=== PATIENT | male | born 2000 | race Caucasian/White ===

== ENCOUNTER 2023-03-22 05:47 | Emergency (ER) | payer BC, OTHER, MEDICAID, SELFPAY ==
[2023-03-22 05:49] VITALS: BP 160/100; PULSE 95; RESP 16; TEMP 35.9; O2SAT 100; BMI 26.9
--- NOTE | 2023-03-22 05:54 | EX.ED.UPPERE ---
HPI History of Present Illness Chief Complaint: Upper Extremity Injury [facility] Medical History (Updated 03/22/23 @ 05:51 by Meri Sorto) Hypertension Home Medications NK 03/22/23 [History Last Taken Unknown] Allergy/AdvReac Type Severity Reaction Status Date / Time No Known Allergies Allergy Verified 03/22/23 05:50 Surgical History (Updated 03/22/23 @ 05:51 by Meri Sorto) History of appendectomy Social History Smoking Status: Current every day smoker tobacco type: cigarettes and e-cigarettes EXAM Physical Exam Const Vital Signs: 03/22/23 05:49 Temperature 96.7 F L Temperature Source Temporal Pulse Rate 95 Respiratory Rate 16 Blood Pressure 160/100 H Blood Pressure Mean 120 Pulse Ox 100 Oxygen Delivery Method Room Air [facility] Narrative Medical decision making narrative: HISTORY OF PRESENT ILLNESS: 22-year-old male here with bilateral hand pain after punching a brick wall. Notes he is right-hand dominant notes he injured his right hand. There is left hand but this is not as bad. REVIEW OF SYSTEMS: Pertinent positives: Hand pain Pertinent negatives: Numbness, weakness PHYSICAL EXAM: Nursing triage notes reviewed, Vital signs reviewed Constitutional: please see mdm Extremities: TTP over right fifth digit, there is swelling and edema over right fifth digit TTP over left fifth digit as well. Neuro: Intact 5/5 strength with ok sign (median), intact finger abduction (ulnar) intact wrist extension (radial n). Intact sensation in the radial, ulnar, and median nerve distributions. Skin: No scattered abrasions noted to bilateral hands MEDICAL DECISION MAKING: Chief Complaint: Hand pain MDM Narrative: Patient was hemodynamically stable, afebrile, nontoxic-appearing. Bilateral upper extremities neurovascular intact. I considered the following differential diagnosis: hand fracture, dislocation ALL IMAGES (IF OBTAINED) HAVE BEEN PERSONALLY REVIEWED AND INTERPRETED BY MYSELF. Radiographs of the left and right hand were personally viewed myself showed evidence of a right fifth metacarpal fracture. Some traction was applied to the patient's metacarpal to reduce angulation splint was placed. Follow-up was arranged. The patient and/or family, caregivers express understanding. The patient and/or family, caregivers agrees with the plan. Shared decision making: I will have a discussion with the patient and or visitors regarding risk/benefits of further testing or admission. They will be made aware of of the risk/benefits inherent in this decision they will be given the opportunity to voice understanding. Total critical care time today provided was at least 0 minutes. This excludes separately billable procedures. Critical care time (if documented) is secondary to the patient having high probability of clinically significant/life threatening deterioration in the patient's condition which required my urgent intervention. Impression: 1. Right fifth metacarpal fracture Dispo: Charge home Procedures Upper Extremity Splints Upper Extremity Splint: Orthoglass Splint Fabrication: Pre-fabricated Location: Right Discharge Plan Triage Chief Complaint: Upper Extremity Injury ED Provider: Carlton Nails Dx/Rx/DC Orders Instructions: ED Boxer Fracture Prescriptions: No Action NK Primary Care Provider: Care Physician,No Primary Referrals: Heriberto Cheung MD [Med Staff - Active Staff] - Activity Restrictions/Additional Instructions: Thank you for trusting us with your care today! Please take Tylenol (2 pills, 650 mg), ibuprofen (2 pills, 400 mg) every 6 hours as needed for pain and fever control. If further pain relief is required please use ice judiciously. Please return to the emergency department if your symptoms change or worsen. Please follow with Orthopedic surgery (Dr. Cheung) for further outpatient evaluation and management. Disposition Disposition: Home, Self Care
--- NOTE | 2023-03-22 05:55 | RAD_ITS ---
INDICATION: HAND PAIN AFTER PUNCHING A WALL EXAMINATION/TECHNIQUE: X-RAY - LEFT XR Hand Min 3 Views 6 VIEWS COMPARISON: Right hand on same day FINDINGS: SOFT TISSUES: No soft tissue swelling or gas. No radiopaque foreign body. BONES/JOINTS: No acute fracture. Normal alignment. Preservation of the joint space.. No sclerotic or destructive changes observed. RAD/Hand Min 3 Views IMPRESSION: Negative. Electronically Signed: Charles Velasquez MD at 6:55 EST ,
--- NOTE | 2023-03-22 06:15 | RAD_ITS ---
INDICATION: hand pain after punching a wall EXAMINATION/TECHNIQUE: X-RAY - RIGHT XR Hand Min 3 Views 3 VIEWS COMPARISON: No relevant prior comparison study available FINDINGS: SOFT TISSUES: Edema along the dorsal ulnar aspect of the hand No radiopaque foreign body. BONES/JOINTS: Fifth metacarpal distal diaphyseal fracture with mild volar angulation.. No dislocation.. Preservation of the joint space.. No sclerotic or destructive changes observed. RAD/Hand Min 3 Views IMPRESSION: Fifth metacarpal angulated fracture. Electronically Signed: Charles Velasquez MD at 6:53 EST ,
[2023-03-22 07:08] VITALS: BP 154/72; PULSE 87; RESP 18
== END 2023-03-22 07:09 | disposition home or self-care (01) ==
PROVIDERS: Emergency Provider Emergency Medicine; Visit Provider Emergency Medicine
DX: S62.306A Unspecified fracture of fifth metacarpal bone, right hand, initial encounter for closed fracture (principal); F17.210 Nicotine dependence, cigarettes, uncomplicated; W22.09XA Striking against other stationary object, initial encounter; Z90.49 Acquired absence of other specified parts of digestive tract; F17.290 Nicotine dependence, other tobacco product, uncomplicated
CPT/HCPCS: 29125; 73130; 99282

== ENCOUNTER 2023-07-30 08:13 | Emergency (ER) | payer BC, OTHER, MEDICAID, SELFPAY ==
[2023-07-30 08:13] VITALS: BP 146/94; PULSE 74; RESP 14; TEMP 36.1; O2SAT 100; BMI 23.7
--- NOTE | 2023-07-30 08:19 | NURSING ---
NO OLD EKGS
--- NOTE | 2023-07-30 08:29 | EKG12_ITS ---
Test Reason : CHEST PAIN Blood Pressure : / mmHG Vent. Rate : 072 BPM Atrial Rate : 072 BPM P-R Int : 144 ms QRS Dur : 098 ms QT Int : 364 ms P-R-T Axes : 056 054 031 degrees QTc Int : 398 ms Normal sinus rhythm with sinus arrhythmia Normal ECG Confirmed by John Harris ([id number]), acquisition editor KAYLEIGH ARELLANO ([id number]) on 07/31/2023 1:08:47 PM Referred By: Confirmed By:John Harris
--- NOTE | 2023-07-30 08:30 | ED.VIS.CHEST ---
HPI History of Present Illness Chief Complaint: Chest Pain Informant: patient Onset/Context/Timing Onset: Yesterday Activity at onset: gradual Timing: Waxes and wanes Quality: Positive for Sharp Location: Left Chest Current Severity: Mild Maximum Severity: Moderate Narrative Narrative: Patient presents secondary to left-sided chest pain. He reports sharp left-sided chest pain that he first noticed yesterday morning. Is been waxing and waning since that time. He does have shortness of breath with exertion. No recent change in activity or injury to the chest wall. No recent URI symptoms. Patient does report family history of cardiac disease. He states his father had his first OK at the age of 21. Patient reports only a history of severe hypertension that was diagnosed at the age of 17. He states he has been off of his blood pressure medication for the past 2 years and was just scheduled to see a new keycase assembler but has not yet done so. [facility] Medical History Hypertension Home Medications ?Medication ?Instructions ?Recorded ?Last Taken ?Type naproxen 500 mg tablet (Naprosyn) 500 mg PO BID PRN pain #20 tabs 07/30/23 Unknown Rx Allergy/AdvReac Type Severity Reaction Status Date / Time No Known Allergies Allergy Verified 07/30/23 08:36 Surgical History History of appendectomy Social History Smoking Status: Current every day smoker tobacco type: cigarettes and e-cigarettes ROS ROS ED Constitutional Constitutional ED: Denies chills or fever(s) Eyes Eyes: Denies discharge from eye(s) ENT ENT ED: Denies discharge from eye(s), rhinorrhea or sore throat Cardiovascular Cardiovascular: Reports chest pain; Denies palpitations Respiratory/Chest Respiratory/Chest: Reports dyspnea; Denies cough Gastrointestinal Gastrointestinal: Denies abdominal pain, nausea or vomiting Musculoskeletal Musculoskeletal: Denies back pain or extremity pain Integumentary Denies Abrasions or rash Neurologic Neurologic: Denies headache(s) or weakness Psychiatric Psychiatric: Denies anxiety or depression Allergic/Immunologic Allergic/Immunologic ED: Denies lip swelling or urticaria EXAM Physical Exam Const Vital Signs: 07/30/23 08:13 07/30/23 08:25 07/30/23 08:29 Temperature 97 F L Temperature Source Temporal Pulse Rate 74 Respiratory Rate 14 Respiratory Effort Normal Non-Labored Respiratory Pattern Normal Blood Pressure 146/94 H Blood Pressure Mean 111 Pulse Ox 100 Oxygen Delivery Method Room Air Room Air Positive well nourished and well developed General Appearance ED: well developed HEENT Reports moist mucous membranes Eyes EOMs intact bilaterally Chest Wall inspection of chest normal Chest Narrative: Mild left chest wall tenderness at the inferior aspect of the left sternal border. Resp normal respiratory effort and clear to auscultation bilaterally Cardio regular rate and regular rhythm GI soft to palpation and non-tender Extremity normal to inspection Neuro oriented x3 and no sensory deficits noted Motor Exam: strength 5/5 throughout Psych mental status grossly normal Skin no rashes or lesions noted MDM MDM MDM Narrative Medical decision making narrative: Patient placed on property assessment monitor. EKG obtained to evaluate for cardiac arrhythmia/ischemia. IV line established. Labwork obtained to evaluate for leukocytosis, anemia, and electrolyte derangement. History & Record Review Discussion w/independent historian: Patient and Significant other Lab Data Attestation: I reviewed the patient's lab results. Labs: Laboratory Results - last 24 hr 07/30/23 08:40 WBC 7.2 RBC 4.80 Hgb 14.7 Hct 43.4 MCV 90.4 MCH 30.6 MCHC 33.9 RDW Std Deviation 41.1 RDW Coeff of Estephania 12.4 Plt Count 255 MPV 9.4 Immature Gran % (Auto) 0.100 Neut % (Auto) 62.3 Lymph % (Auto) 25.5 [place]a % (Auto) 9.6 Eos % (Auto) 1.7 Baso % (Auto) 0.8 Absolute Neuts (auto) 4.5 Absolute Lymphs (auto) 1.83 Nucleated RBC % 0 D-Dimer Quant (PE/DVT) 0.31 Sodium 141 Potassium 3.9 Chloride 109 H Carbon Dioxide 26.0 Anion Gap 6 BUN 11 Creatinine 0.94 Estim Creat Clear Calc 143.32 Est GFR (MDRD) Af Amer 129 Est GFR (MDRD) Non-Af 107 BUN/Creatinine Ratio 11.8 Glucose 103 Calcium 8.9 Troponin I High Sens 5 Radiography Chest X-Ray - ED: 1 View, Read by ED Physician, Normal, Heart, Lungs and Mediastinum Diagnostic Testing: Clinical Impression(s) from Imaging Studies Chest X-Ray 07/30/23 08:45 IMPRESSION: No acute cardiopulmonary disease. Electronically Signed: Anmol Arnold MD at 9:00 EDT , EKG Initial EKG: Attestation: I personally reviewed and interpreted this EKG as follows: Interpretation: Sinus Rhythm (Sinus rhythm at 72 bpm. No acute ischemia.) Treatment and Re-Evaluation :: CBC reveals normal white count at 7.2 with a hemoglobin of 14.7. Normal differential. Chemistry studies are unremarkable. Troponin is normal at 5 and D-dimer is normal at 0.31. Portable chest x-ray per my interpretation reveals no acute findings. Radiology interpretation reviewed and agrees. EKG is sinus rhythm with no evidence of ischemia. On repeat evaluation patient resting comfortably. He has had no significant arrhythmias on property assessment monitor. His blood pressure at this time is 118/77. He is scheduled to see Dr. Alfaro from cardiology at [facility] in either mid August or September. I did recommend they call to update the patient was seen because of chest pain and see if he can have his appointment moved any sooner. At this time I will write him a prescription for naproxen to help with chest wall pain as I do believe this is a component of his current complaint. Discharge Plan Triage Chief Complaint: Chest Pain ED Provider: Sofia Hansen Dx/Rx/DC Orders Clinical Impression: Chest pain Instructions: ED Chest Pain, Uncertain Cause Prescriptions: New naproxen [Naprosyn] 500 mg tablet 500 mg PO BID PRN (Reason: pain) Qty: 20 0RF Primary Care Provider: Care Physician,No Primary Referrals: Care Physician,No Primary [Primary Care Provider] - Activity Restrictions/Additional Instructions: Please follow-up with Dr. Alfaro as scheduled. Print Language: British Disposition Disposition: Home, Self Care
[2023-07-30] MEDS: 0.9% Normal Saline (1000mL) 1,000 ML 150 ML IV (08:43)
[2023-07-30] MEDS: Aspirin 81 MG TAB.CHEW 324 MG PO (08:44)
--- NOTE | 2023-07-30 08:45 | RAD_ITS ---
EXAM: XR CHEST, 1 VIEW CLINICAL INDICATION: chest pain TECHNIQUE: Frontal view of the chest. COMPARISON: No relevant prior studies available. FINDINGS: LUNGS AND PLEURAL SPACES: Normal. No consolidation or edema. No pneumothorax. No effusion. HEART: Normal heart size. MEDIASTINUM: No mediastinal or hilar mass. BONES/JOINTS: No acute abnormality. RAD/Chest 1 View (Portable) IMPRESSION: No acute cardiopulmonary disease. Electronically Signed: Anmol Arnold MD at 9:00 EDT ,
[2023-07-30 08:49] LABS: Absolute Lymphocyte Count 1.83 X10^3/uL (0.83-4.51); Absolute Neutrophil Count 4.5 X10^3/uL (2.0-7.7); Basophil# 0.06 X10^3/uL; Basophil% 0.8 % (0-1); Eosinophil# 0.12 X10^3/uL; Eosinophils% 1.7 % (0-5); Hematocrit 43.4 % (40-54); Hemoglobin 14.7 g/dL (13.0-16.5); Lymphocyte # 1.83 X10^3/ul (0.83-4.51); Lymphocyte % 25.5 % (19-41); Mean Corp Hgb Conc 33.9 g/dL (32-36); Mean Corpuscular Hgb 30.6 pg (27.0-32.0); Mean Corpuscular Volume 90.4 fL (80-94); Mean Platelet Vol. 9.4 fl (6.2-12.0); Monocyte# 0.69 X10^3/uL; Monocyte% 9.6 % (0-10); NRBC Flagged by Analyzer 0 % (0-5); Neutrophil # 4.47 X10^3/uL (2.7-7.7); Neutrophil % 62.3 % (47-70); Platelet Count 255 K/mm3 (150-450); RBC Distribution Width CV 12.4 % (11.6-14.6); RBC Distribution Width SD 41.1 fl (35.1-43.9); White Blood Count 7.2 K/mm3 (4.4-11.0)
[2023-07-30 09:15] LABS: Anion Gap 6 (5-15); BUN 11 mg/dL (7-18); BUN/Creat Ratio 11.8 RATIO (10-20); Calcium,Total 8.9 mg/dL (8.5-10.1); Chloride 109 mmol/L (98-107); Creatinine, Serum 0.94 mg/dL (0.70-1.30); EST Glomerular Filtration Rate 107 mL/min (>60); Est Glom Filt Rate - Afr Amer 129 mL/min (>60); Estimated Creatinine Clearance 143.32 ml/min; Glucose 103 mg/dL (74-106); Potassium 3.9 mmol/L (3.5-5.1); Sodium Level 141 mmol/L (136-145); Troponin-I HS 5 pg/mL (3.0-78.0)
[2023-07-30 09:22] LABS: D-Dimer Quantitative (DVT/PE) 0.31 FEU/ug/m (0.27-0.49)
[2023-07-30 09:52] VITALS: BP 117/80; PULSE 74; RESP 18; TEMP 36.8; O2SAT 98
== END 2023-07-30 09:55 | disposition home or self-care (01) ==
PROVIDERS: Emergency Provider Emergency Medicine; Visit Provider Emergency Medicine
DX: R07.9 Chest pain, unspecified (principal); F17.210 Nicotine dependence, cigarettes, uncomplicated; I10 Essential (primary) hypertension; Z90.49 Acquired absence of other specified parts of digestive tract; F17.290 Nicotine dependence, other tobacco product, uncomplicated
CPT/HCPCS: 71045; 80048; 84484; 85025; 85379; 93005; 99284; J7030; A4216

== ENCOUNTER → 2023-11-26 | Outpatient (CLI) | payer OTHER, BC, MEDICAID, SELFPAY ==
--- NOTE | 2023-11-26 11:47 | RAD_ITS ---
STUDY: X-RAY - LEFT HAND REASON FOR EXAM: Male, 22 years old. Left hand trauma. Follow-up. TECHNIQUE: 3 view(s) of the hand. COMPARISON: November 22, 2023 FINDINGS: Stable comminuted fractures of the proximal aspects of the middle phalanges of the fourth digits with minimal displacement at the fracture sites, fourth digit greater than fifth digit. Soft tissue swelling. RAD/Hand Min 3 Views IMPRESSION: Stable fractures of the proximal phalange ease of the fourth and fifth fingers. Electronically Signed: Steven Steele MD at 15:40 EDT ,
== END | disposition home or self-care (01) ==
LOC: RAD 11:46
PROVIDERS: Referring Provider Surgery Plastic and Reconstructive Surgery; Visit Provider Surgery Plastic and Reconstructive Surgery
DX: S62.607A Fracture of unspecified phalanx of left little finger, initial encounter for closed fracture (principal); S62.605A Fracture of unspecified phalanx of left ring finger, initial encounter for closed fracture; X58.XXXA Exposure to other specified factors, initial encounter
CPT/HCPCS: 73130

== ENCOUNTER 2023-11-27 12:12 | Day surgery (SDC) | payer BC, OTHER, MEDICAID, SELFPAY ==
[2023-11-27] VITALS (9 sets, daily range): BP systolic 146–159; BP diastolic 84–98; PULSE 76–98; RESP 16–18; TEMP 36.1–36.3; O2SAT 98–100; BMI 24.5
--- NOTE | 2023-11-27 12:30 | HP.PCM.SX_ITS ---
HPI - General HPI Narrative ALLA HANLEY, is a 22 M who presents left ring and small finger fractures. Current Encounter (DATE OF SURGERY H&P UPDATE): I saw and examined the patient this morning in pre-operative holding. We discussed risks and benefits of today's surgery and they would like to proceed. NO CHANGE in health history since last seen and evaluated. Ready to proceed with surgery. [facility] Medical History (Updated 11/26/23 @ 14:53 by Lynne Small) Anxiety Alcohol use Migraine headache Gastric reflux Smoker Fracture of phalanx of left ring finger Fracture of phalanx of left little finger Left hand pain Hypertension Home Medications ?Medication ?Instructions ?Recorded ?Last Taken ?Type hydrocodone-acetaminophen 5-325mg 1 tab PO 4X/DAY PRN pain 11/22/23 Unknown History 5mg-325mg cephalexin 500 mg capsule 500 mg PO TID 7 days #21 caps 11/27/23 Unknown Rx oxycodone 5 mg tablet 5 mg PO Q12H PRN pain 5 days #10 11/27/23 Unknown Rx tabs Allergy/AdvReac Type Severity Reaction Status Date / Time No Known Allergies Allergy Verified 11/26/23 14:47 Family History Mother Anxiety Arthritis Grandmother Arthritis Breast cancer High cholesterol Cancer skin cancer Thyroid disorder Grandfather Diabetes Father Hypertension Cancer lung cancer-father Surgical History (Updated 11/26/23 @ 14:53 by Lynne Small) History of appendectomy (~2019) Social History household members: significant other Smoking Status: Current every day smoker tobacco type: cigarettes and e- cigarettes alcohol intake: current details: Claudio additional social history: pt vapes, denies marijuana use, denies edibles pt denies any family history of bleeding or blood clotting disorder denies aspirin and ibuprofen use Physical Exam Narrative Splint in place on the left upper extremity Assessment & Plan Assessment/Plan (1) Fracture of phalanx of left ring finger: PLAN: I talked to the patient extensively about his ring finger fracture and options for management (including attempted reduction and splinting). After discussion, I recommended surgery and he agreed. He understands that we may or may not perform surgery with hardware on the small finger fracture (depending on what it looks like in the operating room with x-rays and fluoroscopy -I will examine stability and assess). He would like to proceed with surgery for the ring and small finger fractures. I talked to him about the potential for K wire placement versus the placement of screws (we talked about close versus open reduction). He understands that the screws will be placed if possible for better stability and earlier range of motion, but I also talked him about how the screws are not MRI compatible and if he needed an MRI at some point they may need to be removed. He understood and agreed to proceed with whichever treatment seemed the best in the operating room based on how the fractures are reduced and what is possible based on the size of the bone. I talked the patient extensively about the risks of surgery, including bleeding, infection (especially the risk of hardware infection and need for repeat mason geries), damage to surrounding structures, nonunion of the fractures or malunion with need for repeat surgeries, need for hand therapy and stiffness, surgical site dehiscence and wound formation, need for wound care, need for repeat operations, failure to obtain the desired result, DVT/PE, and the risks of anesthesia including . All of their questions were answered, and they agreed to proceed with surgery. I also talked him about smoking cessation, and he agreed to try to quit INTERVAL H&P PLAN, DATE OF SURGERY: We will proceed with surgery today. (2) Fracture of phalanx of left little finger: (3) Left hand pain:
--- NOTE | 2023-11-27 12:39 | PCM.PRE.AN2 ---
ASA Classification* ASA Classification ASA Classification: 2 Assessment & Plan Anesthesia* Anesthesia Assessment Anesthesia Assessment: Discussed sedation and/or anesthesia options, risks, benefits, and alternatives with patient/parents/legal guardian/POA. Questions invited. The patient/parents/legal guardian/POA seems to understand and agrees to proceed with anesthesia plan. Reviewed the physical assessment, medical history, allergy history and patient home medications list prior to surgery/procedure/anesthetic and documented any changes. Performed airway and anesthesia risk assessments. Anesthesia Type Anesthesia Type: General Anesthesia Focused Assessment* Airway Assessment Mouth opens: >3 cm Mallampati Score: II Focused Labs Anesthesia Preop lab: CBC WBC 7.2 K/mm3 (4.4-11.0) 07/30/23 08:40 RBC 4.80 M/mm3 (4.6-6.2) 07/30/23 08:40 Hgb 14.7 g/dL (13.0-16.5) 07/30/23 08:40 Hct 43.4 % (40-54) 07/30/23 08:40 Plt Count 255 K/mm3 (150-450) 07/30/23 08:40 CHEMISTRY Potassium 3.9 mmol/L (3.5-5.1) 07/30/23 08:40 Sodium 141 mmol/L (136-145) 07/30/23 08:40 BUN 11 mg/dL (7-18) 07/30/23 08:40 Creatinine 0.94 mg/dL (0.70-1.30) 07/30/23 08:40 Glucose 103 mg/dL (74-106) 07/30/23 08:40 COAG Pre-Assessment Diagnosis/Proposed Procedure Planned Operative Procedure(s): Closed vs open fixation left ring and small finger Anesthesia History Anesthesia History - property accountant: Anesthesia History - property accountant Hx Hospitalization No 11/26/23 14:48 Any Problems With Anesthesia No 11/26/23 14:48 Cholinesterase deficiency No 11/26/23 14:48 You/Your Family Experience No 11/26/23 14:48 fever (hyperthermia) with Relationship Recent Exposure to Contagious Disease Does patient have nerve No 11/26/23 14:48 stimulator Patient instructed to have device shut off --Does patient have Pacemaker or ICD? When Was Last Pacemaker Check QUESTION #4 FULL TEXT: You/Your Family Experience fever (hyperthermia) with Anesthesia Last Oral Intake Last Oral intake: Last Oral Intake NPO since Meds taken in AM with sips of water? Meds patient instructed to take am of surgery PONV PONV - property accountant: PONV - property accountant Female No 11/26/23 14:48 HX of Motion Sickness No 11/26/23 14:48 HX of N/V After Surgery No 11/26/23 14:48 Non-Smoker No 11/26/23 14:48 Duration of Surgery greater Yes 11/26/23 14:48 than 60 minutes Number of Risk Factors 1 11/26/23 14:48 PONV Score Low Risk 11/26/23 14:48 Height & Weight Height & Weight: Anesthesia: Height & Weight Height 6 ft 3 in 11/26/23 11:19 Respiratory Assessment Respiratory Assessment - property accountant: Respiratory Tract Infection Hx - property accountant Hx Respiratory Tract Infection No 11/26/23 14:48 STOP Sleep Apnea STOP Sleep Apnea - property accountant: STOP Sleep Apnea - property accountant Hx Hypertension Yes: PT STATES HTN AND 11/26/23 14:48 SUPPOSED TO TAKE MED BUT DOESNT Hx Sleep Apnea No 11/26/23 14:48 CPAP BIPAP Do you snore loudly (louder No 11/26/23 14:48 than talking or can be heard Do you often feel tired/ No 11/26/23 14:48 fatigued/ sleepy during daytime? Has anyone observed you stop No 11/26/23 14:48 breathing during sleep? STOP Results Negative 11/26/23 14:48 QUESTION #5 FULL TEXT : Do you snore loudly (louder than talking or can be heard through closed doors)? Tobacco Use History Tobacco Use History - property accountant: Tobacco Use History - property accountant Tobacco Use Smoking Status Current every day smoker 11/26/23 14:48 Hx Tobacco Use Yes 11/26/23 14:48 Years Smoking Packs Smoked per Day Smoking Cessation Date was within the last 15 years Hx Smoking Cessation Date Hx Smoking Cessation Counseling Hematologic Medial History Hematologic Hx - property accountant: Hematologic Medical Hx - magazine grinder loader Hx of Blood Transfusion No 11/26/23 14:48 Hx of Transfusion in last 3 No 11/26/23 14:48 Months Date of Last Transfusion (if within last 3 months) Ever experience any problems No 11/26/23 14:48 with transfusion(s)? Specify any problems Hx of Preganancy in last 3 N/A 11/26/23 14:48 Months Nurse Filling Out Transfusion NBUCHER 11/26/23 14:48 & Questions: Date: 11/26/23 11/26/23 14:48 Time: 14:49 11/26/23 14:48 Patient unable to answer at this time (ie. confused, unrespo /Reproduction History /Reproductive History - property accountant: /Reproductive Hx- property accountant Hx Now No 11/26/23 14:48 Gestational Age (in weeks): EDC: Hx Hx Para Hx Section SAB No 11/26/23 14:48 Active Medications Active Medications: Current Medications Generic Name Dose Route Start Last Admin Trade Name Freq PRN Reason Stop Dose Admin Lactated Ringer's 1,000 mls @ 15 mls/hr 11/27/23 12:30 IV .Q48H PINKY PFSH Medical History Anxiety Alcohol use Migraine headache Gastric reflux Smoker Fracture of phalanx of left ring finger Fracture of phalanx of left little finger Left hand pain Hypertension Home Medications ?Medication ?Instructions ?Recorded ?Last Taken ?Type hydrocodone-acetaminophen 5-325mg 1 tab PO 4X/DAY PRN pain 11/22/23 11/24/23 History 5mg-325mg cephalexin 500 mg capsule 500 mg PO TID 7 days #21 caps 11/27/23 Unknown Rx oxycodone 5 mg tablet 5 mg PO Q12H PRN pain 5 days #10 11/27/23 Unknown Rx tabs Allergy/AdvReac Type Severity Reaction Status Date / Time No Known Allergies Allergy Verified 11/27/23 12:34 Family History Mother Anxiety Arthritis Grandmother Arthritis Breast cancer High cholesterol Cancer skin cancer Thyroid disorder Grandfather Diabetes Father Hypertension Cancer lung cancer-father Surgical History History of appendectomy (~2018) Social History household members: significant other Smoking Status: Current every day smoker tobacco type: cigarettes and e-cigarettes alcohol intake: current details: Rarley additional social history: pt vapes, denies marijuana use, denies edibles pt denies any family history of bleeding or blood clotting disorder denies aspirin and ibuprofen use Review of Systems (Anesthesia) ROS Narrative System reviewed and no additional complaints, except as documented.
[2023-11-27] MEDS: Lactated Ringers 1,000 ML 15 ML IV (12:54)
--- NOTE | 2023-11-27 12:54 | SUR.PREOP ---
DR. JEFFERSON AND DR. ALMANZAR IS AWARE OF PATIENT'S HISTORY OF HTN AND HIS BILATERAL GREAT INGROWN TOE INFECTIONS. THEY WILL PROCEED WITH SURGERY.
--- NOTE | 2023-11-27 13:20 | RAD_ITS ---
STUDY: X-RAY - LEFT HAND, ATTENTION FOURTH FINGER REASON FOR EXAM: Male, 22 years old. Intraoperative digital documentation views. TECHNIQUE: 23 saved intraoperative digital documentation view(s) of the finger. COMPARISON: Left hand x-rays dated November 26, 2023 FINDINGS: 411 images acquired. 23 images saved. Total exposure time 7 minutes 20 seconds. Longest single exposure 12 seconds. Total DAP 38.9092 cGy/cm2. Total air kerma 2.3160 mGy. RAD/Finger(s) Min 2 Views IMPRESSION: Intraoperative digital documentation views. Electronically Signed: Steven Steele MD at 15:45 EDT ,
[2023-11-27] MEDS: Cefazolin 2 GM in 0.9% Normal Saline (100mL Bag) 100 ML IV (14:24)
[2023-11-27] MEDS: Bupivacaine 0.25% 30 ML Vial (15:08)
--- NOTE | 2023-11-27 15:15 | PCM.POST.ANE ---
Anesthesia: Postop Eval I Current Vital Signs Temperature: 97.2 F Pulse Rate: 98 Blood Pressure: 159/88 Respiratory Rate: 18 Pulse Ox: 100 Oxygen Delivery Method: Room Air Assessment Airway patent: Yes Spontaneous unlabored respirations: Yes Mental status: Awake and Calm nausea: No Vomiting: No Anesthesia Complication: No Fluid Hydration Crystalloid volume administer (ml): 500 Total IV fluid infused: 500 Progress Note Anesthesia document: Postop Eval 1 completed: Yes
--- NOTE | 2023-11-27 16:01 | POSTOPAN2_ITS ---
Anesthesia Postop Eval I Sum Postop Eval Completion status Anesthesia document: Postop Eval 1 completed: Yes Anesthesia Postop Eval I Summary Anesthesia Postop Eval I Summary: Anesthesia Postop Eval I: Assessment Summary Airway patent Yes 11/27/23 15:16 [email or web address] Spontaneous unlabored Yes 11/27/23 15:16 [email or web address] respirations Mental status Awake,Calm 11/27/23 15:16 [email or web address] nausea No 11/27/23 15:16 HIGH [email or web address] Vomiting No 11/27/23 15:16 [email or web address] Anesthesia Postop Eval I: Fluid Summary Crystalloid volume administer 500 11/27/23 15:16 [email or web address] (ml) Colloids volume administered ( ml) Blood Product volume administered (ml) Total IV fluid infused 500 11/27/23 15:16 [email or web address] [email or web address] Anesthesia Postop Eval I: Summary Notes Anesthesia Complication No 11/27/23 15:16 [email or web address] [email or web address] Anesthesia Complication Comment: Post-operative progress note Anesthesia: Postop Eval II Evaluation Mental status: Awake Pain Level: 0 nausea: No Vomiting: No
--- NOTE | 2023-11-27 16:01 | PCM.POSTANE2 ---
Anesthesia Postop Eval I Sum Postop Eval Completion status Anesthesia document: Postop Eval 1 completed: Yes Anesthesia Postop Eval I Summary Anesthesia Postop Eval I Summary: Anesthesia Postop Eval I: Assessment Summary Airway patent Yes 11/27/23 15:16 [email or web address] Spontaneous unlabored Yes 11/27/23 15:16 [email or web address] [email or web address] respirations Mental status Awake,Calm 11/27/23 15:16 [email or web address] [email or web address] nausea No 11/27/23 15:16 [email or web address] [email or web address] Vomiting No 11/27/23 15:16 [email or web address] Anesthesia Postop Eval I: Fluid Summary Crystalloid volume administer 500 11/27/23 15:16 [email or web address] (ml) Colloids volume administered ( ml) Blood Product volume administered (ml) Total IV fluid infused 500 11/27/23 15:16 [email or web address] Anesthesia Postop Eval I: Summary Notes Anesthesia Complication No 11/27/23 15:16 [email or web address] Anesthesia Complication Comment: Post-operative progress note Anesthesia: Postop Eval II Evaluation Mental status: Awake Pain Level: 0 nausea: No Vomiting: No
[2023-11-27] MEDS: oxyCODONE 5 MG Tablet PO (16:17)
[2023-11-27] MEDS: Acetaminophen 500 MG Tablet 1000 MG PO (16:17)
--- NOTE | 2023-11-27 17:11 | OP.PCM_ITS ---
Operative Report Date of Procedure: 11/27/23 Surgery/Procedure Date: [ ] Incision/Procedure Start Time: [ ] Incision Close/Procedure End Time: [ ] PATIENT: [ ] SURGEON: Randy Gallardo MD PRE-OPERATIVE DIAGNOSIS: [ ] POST-OPERATIVE DIAGNOSIS: [ ] PROCEDURE PERFORMED: 1) Open reduction internal fixation of the left ring finger middle phalanx fracture, CPT code: 01418 2) Closed treatment without manipulation of the left small finger middle phalanx fracture, CPT code: 96895 OPERATIVE FINDINGS: [ ] INDICATIONS: [ ] OPERATIVE DETAILS: [ ] EBL: [ ] Anesthesia: [ ] ASA: [ ] IVF: [ ] UOP: [ ] Transfusions: [ ] POST-OPERATIVE PLAN: [ ]
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
== END 2023-11-27 18:04 | disposition home or self-care (01) ==
LOC: SDC 12:20 → AC 12:22
PROVIDERS: Referring Provider Surgery Plastic and Reconstructive Surgery; Visit Provider Surgery Plastic and Reconstructive Surgery
PROC: (CPT 26735; principal; 2023-11-27 14:05)
DX: S62.655A Nondisplaced fracture of middle phalanx of left ring finger, initial encounter for closed fracture (principal); S62.627A Displaced fracture of middle phalanx of left little finger, initial encounter for closed fracture; W22.8XXA Striking against or struck by other objects, initial encounter; I10 Essential (primary) hypertension; K21.9 Gastro-esophageal reflux disease without esophagitis; F41.9 Anxiety disorder, unspecified; F17.210 Nicotine dependence, cigarettes, uncomplicated; F17.290 Nicotine dependence, other tobacco product, uncomplicated; Z79.891 Long term (current) use of opiate analgesic
CPT/HCPCS: 26735; 26720; 01830; 73140; 76000; C1713; J7120; J2405

== ENCOUNTER → 2023-12-05 | Outpatient (CLI) | payer BC, OTHER, MEDICAID, SELFPAY ==
--- NOTE | 2023-12-05 14:30 | RAD_ITS ---
INDICATION: Left hand ORIF EXAMINATION/TECHNIQUE: X-RAY - LEFT XR Hand Min 3 Views 3 VIEWS COMPARISON: November 22, 2023 FINDINGS: SOFT TISSUES: Mild soft tissue swelling of the fourth finger. No radiopaque foreign body. BONES/JOINTS: Status post ORIF for a fracture involving the middle phalanx of the fourth finger. Stable fracture of the middle phalanx of fifth finger. . Preservation of the joint space.. No sclerotic or destructive changes observed. RAD/Hand Min 3 Views IMPRESSION: Status post ORIF for a fracture involving the middle phalanx of the fourth finger. Stable fracture of the middle phalanx of fifth finger. Electronically Signed: Juan Calvin DO at 18:44 EDT Reading Location ID and State: [facility] / [place] Tel [phone], Service support ,
== END | disposition home or self-care (01) ==
PROVIDERS: Referring Provider Surgery Plastic and Reconstructive Surgery; Visit Provider Surgery Plastic and Reconstructive Surgery
DX: S62.605A Fracture of unspecified phalanx of left ring finger, initial encounter for closed fracture (principal); S62.607A Fracture of unspecified phalanx of left little finger, initial encounter for closed fracture; M79.642 Pain in left hand; X58.XXXA Exposure to other specified factors, initial encounter
CPT/HCPCS: 73130

== ENCOUNTER 2023-12-21 02:12 | Emergency (ER) | payer BC, OTHER, MEDICAID, SELFPAY ==
[2023-12-21 02:12] VITALS: BP 140/83; PULSE 97; RESP 18; TEMP 36.1; O2SAT 100; BMI 25.7
[2023-12-21 02:49] VITALS: BP 133/78; PULSE 74; RESP 16; TEMP 36.6; O2SAT 99
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
== END 2023-12-21 02:53 | disposition home or self-care (01) ==
PROVIDERS: Emergency Provider Emergency Medicine; Visit Provider Emergency Medicine
DX: S62.605D Fracture of unspecified phalanx of left ring finger, subsequent encounter for fracture with routine healing (principal); S62.607D Fracture of unspecified phalanx of left little finger, subsequent encounter for fracture with routine healing; X58.XXXD Exposure to other specified factors, subsequent encounter; I10 Essential (primary) hypertension; F17.210 Nicotine dependence, cigarettes, uncomplicated; F17.290 Nicotine dependence, other tobacco product, uncomplicated
CPT/HCPCS: 29125; 99282

== ENCOUNTER 2023-12-26 15:30 | Outpatient (RCR) | payer BC, OTHER, MEDICAID, SELFPAY ==
--- NOTE | 2023-12-24 14:13 | HP.OTEVAL_ITS ---
Patient's Visit Information Visit Information Visit Information: ALLA HANLEY is a 23 year old M, referred to Occupational Therapy by Dr. Randy Gallardo MD, with a diagnosis of fx left RF/LF phalanx. Date of Evaluation: 12/24/23 Occupational Therapist: Deonna Lea, OTR/Danilo, CHT Subjective Subjective: This 23 year old male was seen for OT eval with dx of a left RF and LF phalanx fx. DOI was on 11/22/2023. Pt states he was using a post hole pounder and hit his hand. pt states he went to ER and then Dr. Gallardo performed sx ORIF to stabilize his fx with intramedullary cannulated headless screw on 11/27/2023. Pt states he struggled with keeping his cast on due to the feeling of itchy cotton or it getting wet. Pt arrived 3 weeks and 6 days from DOS. Today Dr. Gallardo would like pt in removable orthosis to allow for protection and support w mariusz fx is still healing. pt states he works at [employer]. 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 Strength Strength Comments: will test later date Quick DASH-Disab of Arm,Shoulder& Hand Quick DASH Score: 23.3325 Goals Goal:ROM equal to unaffected hand: Yes Goal:Strike Operations Officer/Pinch strength at least 75% of unaffected hand: Yes Comment: will not initiate until week [address] Gallardo indicates Goal:No pain with affected hand use: Yes Goal:Full use of affected hand in daily activities including work: Yes Other Goal: orthosis use: pt will demo IND doffing/donning of orthosis by end of 1st session. pt will demo understanding of orthosis use and precautions by end of 1st session. pt to return to clinic if orthosis need adj. to increase comfort and compliance with orthosis by end of 1st session. Rehabilitation General Assessment: pt arrives 3 weeks and 6 days s/p from fx stabilization with ORIF use of intramedullary cannulated headless screw to left RF P2. pt demo with limited ROM and newly healing structures that require further support and protection while fx is healing. PT demo need for skilled OT services 1-2 for 4 - 6 weeks to return pt to his PLOF. Today therapist needed for custom orthosis steven. also ed. pt on use and healing time for fx. pt demo understanding and agree to POC. Rehabilitation Potential: Good Anticipated Interventions Anticipated Interventions: A/AAROM/PROM, Strengthening, Triggerpoint Release, Modalities, Orthoses, Joint Protection/Energy Conservation, Ergonomic Education, Education re Diagnosis and Home Program Visit Plan Frequency: 1-2x /Week Duration: 4-6 Weeks General Plan: will steven. custom orthosis for use to allow fx to heal ed. on dx and healing ed.pt on light ROM ed. pt no lift, push or pull until cleared by Dr. Gallardo TEXT: Thank you for the opportunity to evaluate your patient. For Medicare and Medicare HMO plans, please review the plan of care and approve it. It will need to be FAXED BACK to us at [phone] for Medicare purposes. Please let me know if there are questions or concerns regarding this plan of care. Physician Signature: Date:
--- NOTE | 2024-05-19 08:49 | HP.OT.NRP ---
Patient Information Patient Information: ALLA HANLEY was seen in my office for initial evaluation on 12/24/23. The following Plan of Care was established for this patient: POC Established Initial Frequency: 1-2x /Week Initial Duration: 4-6 Weeks Plan: Continue POC: Anticipated Interventions Anticipated Interventions: A/AAROM/PROM, Strengthening, Triggerpoint Release, Modalities, Orthoses, Joint Protection/Energy Conservation, Ergonomic Education, Education re Diagnosis and Home Program Last Seen Last Seen: This patient was last seen in our office 12/26/23. Pertinent comments regarding their Occupational therapy will appear below: pt has no showed 3 apts in a row. At this time pt d/c. At this point I will be discontinuing this patient from occupational therapy. I would be happy to see this patient again in the future if found appropriate by the physician. Thank you! Deonna Lea, OTR/L, CHT
== END 2023-12-26 19:00 | disposition home or self-care (01) ==
LOC: OT 15:30
PROVIDERS: Referring Provider Surgery Plastic and Reconstructive Surgery; Visit Provider Surgery Plastic and Reconstructive Surgery
DX: S62.605D Fracture of unspecified phalanx of left ring finger, subsequent encounter for fracture with routine healing (principal); S62.607D Fracture of unspecified phalanx of left little finger, subsequent encounter for fracture with routine healing
CPT/HCPCS: 97110; 97165; 97760

== ENCOUNTER 2023-12-29 18:05 | Emergency (ER) | payer BC, OTHER, MEDICAID, SELFPAY ==
[2023-12-29 18:05] VITALS: BP 140/89; PULSE 133; RESP 18; TEMP 36.4; O2SAT 98; BMI 25.4
[2023-12-29 19:05] VITALS: BP 126/88; PULSE 105; RESP 18; O2SAT 99
[2023-12-29 19:59] LABS: Absolute Lymphocyte Count 1.43 X10^3/uL (0.83-4.51); Absolute Neutrophil Count 9.1 X10^3/uL (2.0-7.7); Basophil# 0.04 X10^3/uL; Basophil% 0.4 % (0-1); Eosinophil# 0.02 X10^3/uL; Eosinophils% 0.2 % (0-5); Hematocrit 46.4 % (40-54); Hemoglobin 16.2 g/dL (13.0-16.5); Lymphocyte # 1.43 X10^3/ul (0.83-4.51); Lymphocyte % 12.6 % (19-41); Mean Corp Hgb Conc 34.9 g/dL (32-36); Mean Corpuscular Hgb 30.5 pg (27.0-32.0); Mean Corpuscular Volume 87.4 fL (80-94); Mean Platelet Vol. 9.8 fl (6.2-12.0); Monocyte# 0.72 X10^3/uL; Monocyte% 6.4 % (0-10); NRBC Flagged by Analyzer 0 % (0-5); Neutrophil # 9.06 X10^3/uL (2.7-7.7); Platelet Count 286 K/mm3 (150-450); RBC Distribution Width CV 12.4 % (11.6-14.6); RBC Distribution Width SD 39.5 fl (35.1-43.9); Red Blood Count 5.31 M/mm3 (4.6-6.2); White Blood Count 11.3 K/mm3 (4.4-11.0)
[2023-12-29 20:00] VITALS: BP 136/75; PULSE 105; RESP 20; O2SAT 99
--- NOTE | 2023-12-29 20:00 | EDS_ITS ---
HPI History of Present Illness Chief Complaint: Chest Pain Narrative Narrative: Chief complaint and HPI: Chest pain. 23-year-old male with untreated hypertension presents for evaluation of intermittent chest pain. Patient states prior he was [facility] years and was released in 2022. He states he has yet to follow-up with a physician. He states that he has a history of hypertension and supposed be on medications but he has not been taking him. He states for the past week he has been having intermittent left-sided chest pain. He does describe it as sharp. Patient states he is worried because his father had his first NJ in his 20s and a second one in his 40s. Patient is a tobacco abuser. He denies any fever, chills, shortness of breath, abdominal pain, nausea, vomiting, URI symptoms. Denies any bilateral lower extremity swelling or pain. Denies any illicit drug or alcohol use. Patient states his pain is improving but is still mildly present. Review of systems: See HPI Medications: As listed on the chart Allergies: As listed on the chart PFSH: Per chart Vital signs: As listed on the chart. Reviewed. Physical exam: Gen: A&O x3, NAD Head: Normocephalic, atraumatic Eyes: No sclera icterus, conjunctiva clear ENT: Moist mucous membranes Neck: Trachea midline, No JVD CV: tachycardic, regular rhythm, no murmurs, no peripheral edema, pain nonreproducible Resp: Lungs CTA BL, no w/r/c GI: Abd soft, non-distended, non-tender, no r/r/g Musc: Full ROM, no deformity Skin: Warm, dry Neuro: Alert, oriented, grossly intact, sensation intact Psych: Cooperative, appropriate mood and affect [facility] Medical History Anxiety Alcohol use Migraine headache Gastric reflux Smoker Fracture of phalanx of left ring finger Fracture of phalanx of left little finger Left hand pain Hypertension Home Medications ?Medication ?Instructions ?Recorded ?Last Taken ?Type NK 12/17/23 Unknown History Allergy/AdvReac Type Severity Reaction Status Date / Time No Known Allergies Allergy Verified 12/29/23 18:11 Family History Mother Anxiety Arthritis Grandmother Arthritis Breast cancer High cholesterol Cancer skin cancer Thyroid disorder Grandfather Diabetes Father Hypertension Cancer lung cancer-father Surgical History History of appendectomy (~2019) Social History household members: significant other Smoking Status: Current every day smoker tobacco type: cigarettes and e- cigarettes alcohol intake: current details: Rarley additional social history: pt vapes, denies marijuana use, denies edibles pt denies any family history of bleeding or blood clotting disorder denies aspirin and ibuprofen use EXAM Physical Exam Const Vital Signs: 12/29/23 18:05 12/29/23 18:16 12/29/23 19:05 Temperature 97.5 F L Temperature Source Temporal Pulse Rate 133 H 105 H Respiratory Rate 18 18 Respiratory Effort Normal Non-Labored Blood Pressure 140/89 H 126/88 H Blood Pressure Mean 106 100 Pulse Ox 98 99 Oxygen Delivery Method Room Air Room Air 12/29/23 20:00 12/29/23 20:03 Temperature 98.2 F Temperature Source Pulse Rate 105 H 105 H Respiratory Rate 20 H 20 H Respiratory Effort Blood Pressure 136/75 H 135/75 H Blood Pressure Mean 95 95 Pulse Ox 99 99 Oxygen Delivery Method Room Air MDM MDM MDM Narrative Medical decision making narrative: 23-year-old male with history of untreated hypertension, tobacco abuse, early CAD in the family presents for evaluation of intermittent chest pain. Physical exam is unremarkable except for tachycardia and mild hypertension. Differential diagnosis includes but is not limited to musculoskeletal strain, pleurisy, pneumonia, ACS, PE, electrolyte abnormality, anxiety. Patient states he has been under a lot of stress lately and does feel mildly anxious. Cardiac workup ordered. Aspirin ordered for pain. EKG reviewed see below. Shortly after obtaining blood work patient states that he would like to leave. He states that his pain is improving and he has to work tomorrow. He states if he misses work he will go back to [facility]. I advised the patient that I do not recommended him leaving as I need to do further workup of his chest pain. Given that he has a family member that had an NJ at a young age I cannot rule out ACS without laboratory workup. I also explained with his tachycardia I cannot rule out PE. I let the patient know that if he wants to leave he needs to leave AGAINST MEDICAL ADVICE. He confirmed understanding. The patient has chosen to leave against medical advice. I personally explained to them that choosing to do so may result in permanent bodily harm or . I discussed at length that without further evaluation and monitoring there may be unforeseen circumstances and deterioration causing permanent bodily harm or because of their choice. They are alert and oriented and can make their own decisions. They state that they are aware of the serious risks as explained, but they continue to wish to leave against medical advice. Considering their decision to leave against medical advice, follow-up has been arranged and they are aware of the importance of following up as instructed. They have been advised that they should return to the ED immediately if they change their mind at any time, or if their condition begins to change or worsen. Patient left when CBC was back only. CBC shows leukocytosis of 11.3. No anemia. After patient discharged the rest of his labs resulted. I did review them. D-dimer unremarkable. BMP unremarkable. Troponin unremarkable. Given these laboratory results, low suspicion for ACS. Negative for PE. EKG: Interpreted by me/EM physician: EKG shows sinus tachycardia. No acute ischemic changes. Heart rate 116. Impression: 1. Intermittent chest pain 2. Hypertension, noncompliant with medications 3. Left AMA Lab Data Labs: Laboratory Results - last 24 hr 12/29/23 18:25 WBC 11.3 H RBC 5.31 Hgb 16.2 Hct 46.4 MCV 87.4 MCH 30.5 MCHC 34.9 RDW Std Deviation 39.5 RDW Coeff of Estephania 12.4 Plt Count 286 MPV 9.8 Immature Gran % (Auto) 0.400 Neut % (Auto) 80.0 H Lymph % (Auto) 12.6 L Elbert % (Auto) 6.4 Eos % (Auto) 0.2 Baso % (Auto) 0.4 Absolute Neuts (auto) 9.1 H Absolute Lymphs (auto) 1.43 Nucleated RBC % 0 D-Dimer Quant (PE/DVT) 0.28 Sodium 141 Potassium 4.1 Chloride 108 H Carbon Dioxide 26.0 Anion Gap 7 BUN 16 Creatinine 1.09 Estim Creat Clear Calc 122.55 Est GFR (MDRD) Af Amer 108 Est GFR (MDRD) Non-Af 89 BUN/Creatinine Ratio 14.7 Glucose 93 Calcium 9.6 Troponin I High Sens 9 Discharge Plan Triage Chief Complaint: Chest Pain ED Provider: Travon Perkins Dx/Rx/DC Orders Instructions: Chest Pain UKO Ch Prescriptions: No Action NK Primary Care Provider: Care Physician,No Primary Referrals: Fern Pandey MD [Med Staff - Account Management Assistant] - Care Physician,No Primary [Primary Care Provider] - Activity Restrictions/Additional Instructions: Please return back to the ED if you change your mind and want to be seen and treated. Follow-up with the primary care physician that was provided above. Print Language: Palauan Disposition Disposition: Against Medical Advice Discharge Date/Time: 12/29/23 20:14
[2023-12-29 20:01] LABS: POSITIVE COUNT NO; POSITIVE DIFFERENTIAL NO; POSITIVE MORPHOLOGY NO
[2023-12-29 20:03] VITALS: BP 135/75; PULSE 105; RESP 20; TEMP 36.8; O2SAT 99
[2023-12-29 20:13] LABS: D-Dimer Quantitative (DVT/PE) 0.28 FEU/ug/m (0.27-0.49)
[2023-12-29 20:21] LABS: Anion Gap 7 (5-15); BUN 16 mg/dL (7-18); BUN/Creat Ratio 14.7 RATIO (10-20); Calcium,Total 9.6 mg/dL (8.5-10.1); Chloride 108 mmol/L (98-107); Creatinine, Serum 1.09 mg/dL (0.70-1.30); EST Glomerular Filtration Rate 89 mL/min (>60); Est Glom Filt Rate - Afr Amer 108 mL/min (>60); Estimated Creatinine Clearance 122.55 ml/min; Glucose 93 mg/dL (74-106); Potassium 4.1 mmol/L (3.5-5.1); Sodium Level 141 mmol/L (136-145); Troponin-I HS (w/2H Reflex) 9 pg/mL (3.0-78.0)
[2023-12-29 21:53] LABS: Reflex Troponin-HS? (from REC) Y
== END 2023-12-29 20:14 | disposition left against medical advice (07) ==
PROVIDERS: Emergency Provider Surgery; Referring Provider Surgery; Visit Provider Surgery
DX: R07.89 Other chest pain (principal); F17.290 Nicotine dependence, other tobacco product, uncomplicated; I10 Essential (primary) hypertension; F17.210 Nicotine dependence, cigarettes, uncomplicated; K21.9 Gastro-esophageal reflux disease without esophagitis; Z53.29 Procedure and treatment not carried out because of patient's decision for other reasons; Z91.148 Patient's other noncompliance with medication regimen for other reason
CPT/HCPCS: 80048; 84484; 85025; 85379; 93005; 99283; A4216

== ENCOUNTER → 2024-03-12 | Outpatient (CLI) | payer BC, OTHER, MEDICAID, SELFPAY ==
--- NOTE | 2024-03-12 17:08 | RAD_ITS ---
STUDY: X-RAY - LEFT HAND REASON FOR EXAM: Male, 23 years old. Left hand trauma. TECHNIQUE: 3 views of the left hand. COMPARISON: Left hand radiographs dated 12/24/2023. FINDINGS: Normal radiocarpal articulation. Normal distal radioulnar joint. Normal visualized carpal bones. Normal carpal articulations Normal carpometacarpal articulation of the thumb. Normal second through fifth carpometacarpal joints. Normal metacarpi. Normal metacarpophalangeal joint of the thumb. Normal interphalangeal joint of the thumb. Normal proximal and distal phalanges of the thumb. Normal metacarpophalangeal joints of the second through fifth fingers. Normal proximal and distal interphalangeal joints of the second through fifth fingers. Again seen is a cannulated compression screw in the middle phalanx of the fourth finger, fixating a now healed fourth middle phalanx fracture. There is a stable healed fracture of the middle phalanx of the fifth finger. Normal phalanges of the second and third fingers. There is persistent mild soft tissue swelling of the fourth finger. RAD/Hand Min 3 Views IMPRESSION: Cannulated compression screw in the middle phalanx of the fourth finger, fixating a now healed fourth middle phalanx fracture. Stable healed fracture of the middle phalanx of the fifth finger. Persistent mild soft tissue swelling of the fourth finger. Electronically Signed: Michel Bowser MD at 12:10 EST ,
--- NOTE | 2024-03-12 17:20 | RAD_ITS ---
STUDY: X-RAY - LEFT HAND, ATTENTION RING FINGER REASON FOR EXAM: Male, 23 years old. Left ring finger fracture. TECHNIQUE: 3 views of the right ring finger were obtained. COMPARISON: Right hand radiographs dated 12/24/2023. FINDINGS: Normal metacarpal head. Normal metacarpophalangeal joint. Normal proximal phalanx. Again seen is a cannulated compression screw in the middle phalanx of the fourth finger, fixating a now healed fourth middle phalanx fracture. Normal distal phalanx. Normal proximal interphalangeal joint. Normal distal interphalangeal joint. RAD/Finger(s) Min 2 Views IMPRESSION: Cannulated compression screw in the middle phalanx of the fourth finger, fixating a now healed fourth middle phalanx fracture. Electronically Signed: Michel Bowser MD at 13:52 EST ,
== END | disposition home or self-care (01) ==
LOC: RAD 17:01
PROVIDERS: Referring Provider Surgery Plastic and Reconstructive Surgery; Visit Provider Surgery Plastic and Reconstructive Surgery
DX: S62.605A Fracture of unspecified phalanx of left ring finger, initial encounter for closed fracture (principal); S62.607A Fracture of unspecified phalanx of left little finger, initial encounter for closed fracture; X58.XXXA Exposure to other specified factors, initial encounter
CPT/HCPCS: 73130; 73140

== ENCOUNTER 2024-07-16 21:56 | Emergency (ER) | payer BC, OTHER, MEDICAID, SELFPAY ==
[2024-07-16 21:57] VITALS: BP 141/112; PULSE 154; RESP 20; TEMP 36.6; O2SAT 98; BMI 28.1
[2024-07-16 22:01] VITALS: BP 141/112; PULSE 154; RESP 20; TEMP 36.6; O2SAT 98
--- NOTE | 2024-07-16 23:24 | EX.ED.DYSGE1 ---
HPI History of Present Illness Chief Complaint: Bite Informant: patient and friend Narrative Narrative: Patient is a 23-year-old male with past medical history of migraine headache anxiety and hypertension. He states roughly 2 hours ago he was bit in the left arm by a friend's dog. He reports pain in the left arm but denies any numbness tingling or weakness. He states his tetanus status is up-to-date. He reports he is unsure if he requires antibiotics or potential closure of the wound and therefore comes in for evaluation [facility] Medical History Anxiety Alcohol use Migraine headache Gastric reflux Smoker Fracture of phalanx of left ring finger Fracture of phalanx of left little finger Left hand pain Hypertension Home Medications ?Medication ?Instructions ?Recorded ?Last Taken ?Type NK 12/17/23 Unknown History amoxicillin 875 mg-potassium 1 tab PO BID 10 days #20 tabs 07/16/24 Unknown Rx clavulanate 125 mg tablet oxycodone-acetaminophen 5 mg-325 1 tab PO Q6H PRN pain 3 days #12 07/16/24 Unknown Rx mg tablet (Percocet) tabs Allergy/AdvReac Type Severity Reaction Status Date / Time No Known Allergies Allergy Verified 07/16/24 21:57 Family History Mother Anxiety Arthritis Grandmother Arthritis Breast cancer High cholesterol Cancer skin cancer Thyroid disorder Grandfather Diabetes Father Hypertension Cancer lung cancer-father Surgical History History of appendectomy (~2019) Social History household members: significant other Smoking Status: Light Smoker (<10/day) alcohol intake: current details: Rarley additional social history: pt vapes, denies marijuana use, denies edibles pt denies any family history of bleeding or blood clotting disorder denies aspirin and ibuprofen use ROS ROS ED Constitutional Constitutional ED: Denies chills or fever(s) ENT ENT ED: Denies sore throat Cardiovascular Cardiovascular: Denies chest pain Respiratory/Chest Respiratory/Chest: Denies cough or dyspnea Gastrointestinal Gastrointestinal: Denies abdominal pain, diarrhea, nausea or vomiting Genitourinary Genitourinary ED: Denies dysuria Musculoskeletal Musculoskeletal: Reports other Details: Positive left arm pain Integumentary Reports Abrasions and other Details: Positive dog bite left arm Neurologic Neurologic: Denies headache(s) or paresthesias Psychiatric Psychiatric: Reports anxiety Hematologic/Lymphatic Hematologic/Lymphatic: Denies easy bleeding or easy bruising EXAM Physical Exam Const Vital Signs: 07/16/24 21:57 07/16/24 22:01 07/16/24 23:38 Temperature 97.9 F 97.9 F 97.8 F Temperature Source Temporal Temporal Pulse Rate 154 H 154 H 81 Respiratory Rate 20 H 20 H 16 Blood Pressure 141/112 H 141/112 H 121/74 H Blood Pressure Mean 121 121 89 Pulse Ox 98 98 99 Oxygen Delivery Method Room Air Room Air Positive well nourished and well developed General Appearance ED: well developed HEENT HEENT Narrative: Normocephalic atraumatic Eyes PERRL and EOMs intact bilaterally General Eye ED: Negative for scleral icterus Neck supple Resp normal respiratory effort and clear to auscultation bilaterally Cardio regular rate and regular rhythm Extremity Extremity Narrative: Left upper extremity is neurovascularly intact; AIN/PIN are intact and normal. Active range of motion is decreased secondary to pain. There is an area of ecchymosis and dermal layer abrasion to the lateral aspect of the left proximal humerus consistent with dog bite. No active bleeding or retained foreign body. No gaping of the wound. Compartments are soft and compressible going against compartment syndrome Remainder of the exam is normal Neuro oriented x3, CN's II-XII intact bilaterally and no sensory deficits noted Sensorium / Orientation: alert Psych mental status grossly normal Skin Skin Narrative: Dog bite/abrasion and hematoma to the left proximal humerus as documented above MDM MDM MDM Narrative Medical decision making narrative: Patient arrived to the ER tachycardic and hypertensive but was visibly anxious. He reported being bitten by a friend's dog roughly 2 hours ago. As the dog is known and can be watched there is no need for rabies prophylaxis. He also states his tetanus status is up-to-date so therefore there is no need provide this. The patient does not have any obvious bony deformity to suggest underlying fracture there are no signs of ligamentous or tendon injury and physical exam does not suggest compartment syndrome so I feel no need for imaging. The wounds are dermal layer in nature and therefore do not need closed. As there is concern for secondary infection the patient will be placed on antibiotics but is otherwise safe for discharge. History & Record Review Discussion w/independent historian: Patient and Friend Discharge Plan Triage Chief Complaint: Bite ED Provider: Elmer Larios Dx/Rx/DC Orders Clinical Impression: Dog bite of extremity, Hypertension, Anxiety Instructions: ED Dog Bite Prescriptions: New amoxicillin-pot clavulanate 875-125 mg tablet 1 tab PO BID 10 Days Qty: 20 0RF oxycodone-acetaminophen [Percocet] 5-325 mg tablet 1 tab PO Q6H PRN (Reason: pain) 3 Days Qty: 12 0RF No Action NK Primary Care Provider: Care Physician,No Primary Referrals: Michael Ferrari MD [Med Staff - Active Staff] - Care Physician,No Primary [Primary Care Provider] - Activity Restrictions/Additional Instructions: Please take your antibiotic as directed to prevent any secondary infection from the dog bite and return to the ER should you have any further concerns Print Language: Venezuelan Disposition Disposition: Home, Self Care Discharge Date/Time: 07/16/24 23:39
[2024-07-16] MEDS: oxyCODONE 5 MG Tablet 10 MG PO (23:35)
[2024-07-16] MEDS: Amox/Clavulanate 875 MG Tablet PO (23:35)
[2024-07-16 23:38] VITALS: BP 121/74; PULSE 81; RESP 16; TEMP 36.6; O2SAT 99
== END 2024-07-16 23:39 | disposition home or self-care (01) ==
PROVIDERS: Emergency Provider Emergency Medicine; Visit Provider Emergency Medicine
DX: S41.152A Open bite of left upper arm, initial encounter (principal); F41.9 Anxiety disorder, unspecified; I10 Essential (primary) hypertension; F17.290 Nicotine dependence, other tobacco product, uncomplicated; K21.9 Gastro-esophageal reflux disease without esophagitis; W54.0XXA Bitten by dog, initial encounter
CPT/HCPCS: 99283

== ENCOUNTER 2024-08-02 01:25 | Emergency (ER) | payer BC, OTHER, MEDICAID, SELFPAY ==
[2024-08-02 01:26] VITALS: BP 152/99; PULSE 120; RESP 15; TEMP 37.1; O2SAT 99; BMI 27.9
--- NOTE | 2024-08-02 01:28 | EX.ED.VIS.PS ---
HPI HPI - Psych History of Present Illness Chief Complaint: Mental Health Detail of Chief Complaint: Sad, lonely and feels empty Informant: patient and police/telecommunications officer Onset/Context/Timing Onset: Days and Weeks Context: Sudden Onset Conflict: Family and Financial Timing: Intermittent and Waxes and wanes Current Severity: Mild Maximum Severity: Severe Worsened by: Situational factors and - (Worse when he interacts with his ex who is with his first child.) Relieved by: Nothing Associated Symptoms Associated Symptoms - Psych: Positive for Change in sleeping; Negative for Depressed, Change in Eating, Decreased Interest, Guilt, Decreased Concentration, Hopelessness, Suicidal Thoughts, Easily distracted, Grandiosity, Flight of Ideas, Increased activity, Pressured Speech, Agitated, Angry, Hostile, Threatening, Confusion, Visual Hallucinations or Auditory Hallucinations Specific plan (suicidal thought): Not applicable Narrative Narrative: Patient is a 23-year-old male. He was brought in by police and Front End Mechanic. Apparently crisis was contacted. He did not contact crisis. He states he did talk to them. He denies suicidal or homicidal ideation. He states his significant other and him have had problems. They have not been together for over a month. He is presently residing in a hotel. He apparently has pain for her car insurance, car repairs, phone and states she feels overwhelmed. He has a service dog. His service dog is present with his ex. He is unhappy with the present situation. He states he text someone he knew in high school to ask what he could do to make things better. His ex became aware of the message and read the message and became upset. He states he has to deal with this. Patient is presently employed. He has history of anxiety, GERD, migraine headaches and hypertension. He has a history of alcohol use and is a smoker. Patient brought in a bowl of noodles and vegetables and chicken and is presently eating his food. He apparently made the meal at his hotel room. Prior similar symptoms: No Recent Illness/Hospitalization: No PFSH PFS Medical History Anxiety Alcohol use Migraine headache Gastric reflux Smoker Fracture of phalanx of left ring finger Fracture of phalanx of left little finger Left hand pain Hypertension Home Medications ?Medication ?Instructions ?Recorded ?Last Taken ?Type amoxicillin 875 mg-potassium 1 tab PO BID 10 days #20 tabs 07/16/24 Unknown Rx clavulanate 125 mg tablet oxycodone-acetaminophen 5 mg-325 1 tab PO Q6H PRN pain 3 days #12 07/16/24 Unknown Rx mg tablet (Percocet) tabs paroxetine HCl 10 mg tablet (Paxil) 10 mg PO DAILY #30 tabs 08/02/24 Unknown Rx Allergy/AdvReac Type Severity Reaction Status Date / Time No Known Allergies Allergy Verified 08/02/24 01:25 Family History Mother Anxiety Arthritis Grandmother Arthritis Breast cancer High cholesterol Cancer skin cancer Thyroid disorder Grandfather Diabetes Father Hypertension Cancer lung cancer-father Surgical History History of appendectomy (~2019) Social History household members: significant other Smoking Status: Light Smoker (<10/day) alcohol intake: current details: Rarley additional social history: pt vapes, denies marijuana use, denies edibles pt denies any family history of bleeding or blood clotting disorder denies aspirin and ibuprofen use ROS ROS ED Constitutional Constitutional ED: Denies chills, fever(s) or subjective Eyes Eyes: Denies blurry vision or change in vision ENT ENT ED: Denies rhinorrhea Cardiovascular Cardiovascular: Denies chest pain or palpitations Respiratory/Chest Respiratory/Chest: Denies cough, dyspnea or dyspnea on exertion Gastrointestinal Gastrointestinal: Denies abdominal pain, nausea or vomiting Neurologic Neurologic: Denies headache(s), paresthesias or weakness Psychiatric Psychiatric: Reports depression; Denies anxiety, suicidal ideation or suicidal thoughts Hematologic/Lymphatic Hematologic/Lymphatic: Denies easy bleeding or easy bruising EXAM Physical Exam Const Vital Signs: 08/02/24 01:26 08/02/24 03:25 Temperature 98.7 F Temperature Source Temporal Pulse Rate 120 H 90 Respiratory Rate 15 16 Blood Pressure 152/99 H Blood Pressure Mean 116 Pulse Ox 99 99 Oxygen Delivery Method Room Air Positive well nourished and well developed General Appearance ED: well developed and NAD; Negative for pallor HEENT Reports moist mucous membranes normocephalic and atraumatic Eyes PERRL and EOMs intact bilaterally Resp normal respiratory effort and clear to auscultation bilaterally Cardio S1 normal heart sound, S2 normal heart sound and no murmurs Rate: regular rate Rhythm: regular rhythm GI non-tender, non-distended and no masses Auscultation: normoactive bowel sounds Extremity normal to inspection General Extremety ED: Negative for edema or tenderness General Extremity: Negative for edema Neuro oriented x3 and CN's II-XII intact bilaterally Superior Coma Scale: document GCS findings Spontaneous Obeys Commands Oriented 15 Sensorium / Orientation: alert Psych Appearance: well kempt Attitude: calm and engaged Activity / Motor Behavior: appropriate eye contact and psychomotor slowing Speech: normal speech and slow Mood & Affect: depressed, sad and flat affect Thought Process: normal thought process Thought Content: normal thought content Attention / Concentration: attention grossly intact and concentration grossly intact Memory / Cognition: memory grossly intact and cognition grossly intact Insight: fair Judgement: judgement good Skin General Skin Exam: Negative for jaundice or pallor Lesions: no lesions Rashes: no rashes MDM MDM MDM Narrative Medical decision making narrative: Patient is depressed due to problems between him and his ex who is . She is approximately 12 weeks gestation. He has no suicidal homicidal thoughts. His nurse was asked to contact crisis to make arrangements for outpatient follow-up. Since he is not suicidal homicidal and is not attempted to harm himself per records available at [facility] in my opinion outpatient follow-up is appropriate. Will need to speak with the fruit farmworker on for crisis since he states he spoke to them. Police and Front End Mechanic who brought him did not pink slipped him because he did not voice suicidal homicidal thoughts of them and apparently he did not voice homicidal or suicidal thoughts to the fruit farmworker either. History & Record Review Additional record(s) reviewed:: Prior outpatient record (Note by Randy Celeste reviewed for fracture phalanx that required operative intervention) and Prior ED visit (Patient seen July 16 for bite and note authored by Dr. Larios.) Management Discussion w/another healthcare provider: Behavioral health (Radha the fruit farmworker for crisis center informing that he has a court case on Saturday. This is anxiety secondary to that. She is in agreement he can be discharged to home with outpatient follow-up. Patient does not want any antianxiolytic or antidepressant. Therefore will discharge to ) Discharge Plan Triage Chief Complaint: Mental Health ED Provider: Sumit Zelaya Dx/Rx/DC Orders Clinical Impression: Situational mixed anxiety and depressive disorder, Elevated blood pressure reading with diagnosis of hypertension, Drug noncompliance Instructions: ED Depression Prescriptions: New paroxetine HCl [Paxil] 10 mg tablet 10 mg PO DAILY Qty: 30 0RF No Action amoxicillin-pot clavulanate 875-125 mg tablet 1 tab PO BID 10 Days Qty: 20 0RF oxycodone-acetaminophen [Percocet] 5-325 mg tablet 1 tab PO Q6H PRN (Reason: pain) 3 Days Qty: 12 0RF Primary Care Provider: Care Physician,No Primary Referrals: Counseling,Center [Group of Physicians] - Keep Tracey appointment Care Physician,No Primary [Primary Care Provider] - Print Language: Kyrgyz Disposition Disposition: Home, Self Care
[2024-08-02 03:25] VITALS: PULSE 90; RESP 16; O2SAT 99
[2024-08-02 04:15] VITALS: BP 139/81; PULSE 85; RESP 16; TEMP 36.8; O2SAT 99
== END 2024-08-02 04:15 | disposition home or self-care (01) ==
PROVIDERS: Emergency Provider Emergency Medicine; Visit Provider Emergency Medicine
DX: F41.8 Other specified anxiety disorders (principal); F17.290 Nicotine dependence, other tobacco product, uncomplicated; Z63.8 Other specified problems related to primary support group; Z91.148 Patient's other noncompliance with medication regimen for other reason; I10 Essential (primary) hypertension; Z59.86 Financial insecurity; K21.9 Gastro-esophageal reflux disease without esophagitis; Z79.899 Other long term (current) drug therapy
CPT/HCPCS: 99284